=== PATIENT | male | born 2000 | race Caucasian/White ===

== ENCOUNTER 2018-06-10 06:13 | Inpatient (IN) ==
[2018-06-10] MEDS ORDERED: SODIUM CHLORIDE 0.9% 1,000 ML IV STA (06:49)
[2018-06-10 06:58] LABS: Basophils # 0.1 10*3/uL (0.0-0.2); Basophils % 0.5 % (0.0-0.8); Eosinophils % 0.2 % (0.00-10.9); Hematocrit 46.9 VOL% (42.0-52.0); Hemoglobin 16.2 GM/DL (14.0-18.0); Immature Granulocytes % 0.5 %; Immature Granulocytes Absolute 0.06 #; Lymphocytes # 1.2 10*3/uL (1.4-4.0); Lymphocytes % 9.2 % (21.2-54.2); Mean Corpuscular HGB Conc 34.5 GM/DL (32-36); Mean Corpuscular Hemoglobin 30 PG (27-34); Mean Corpuscular Volume 85.4 FL (87-102); Mean Platelet Volume 9.3 FL (9.6-12.0); Monocytes # 0.8 10*3/uL (0.11-0.8); Monocytes % 6.3 % (1.7-12.7); Neutrophils # 10.8 10*3/uL (1.4-7.4); Neutrophils % 83.3 % (38.7-73.9); Platelet Count 336 T/CUMM (130-400); Red Blood Count 5.49 MC/CUMM (3.8-5.5); Red Cell Distribution Width 11.8 % (9.3-17.3); White Blood Count 12.9 T/CUMM (4-12)
[2018-06-10 07:08] LABS: Alanine Aminotransferase 20 U/L (16-61); Albumin 4.9 G/DL (3.4-5.0); Alkaline Phosphatase 72 U/L (45-117); Aspartate Amino Transferase 17 U/L (0-37); Blood Urea Nitrogen 15 MG/DL (7-18); Calcium 9.4 MG/DL (8.5-10.1); Glucose 127 MG/DL (74-106); Potassium 3.3 MMOL/L (3.5-5.1); Sodium 136 MMOL/L (136-145); Total Protein 8.5 G/DL (6.4-8.3)
[2018-06-10 07:23] LABS: Acetaminophen < 2.0 UG/ML (10-30); Salicylate < 2.8 MG/DL (2.8-20)
[2018-06-10 09:43] LABS: Barbiturates Screen,Urine Negative (Negative); Benzodiazepines Screen,Urine Negative (Negative); Cannabinoid Screen,Urine Negative (Negative); Opiate Screen,Urine Negative (Negative); Phencyclidine Screen,Urine Negative (Negative)
[2018-06-10] MEDS ORDERED: ONDANSETRON 4 MG/2 ML VIAL IV PRN (15:06)
[2018-06-10] MEDS ORDERED: ACETAMINOPHEN 325 MG TABLET PO PRN (15:06)
[2018-06-10] MEDS ORDERED: PROMETHAZINE 25 MG/1 ML VIAL IM PRN (15:06)
[2018-06-10] MEDS ORDERED: POTASSIUM CHLORIDE 20 MEQ TABLET PO STA (15:08)
[2018-06-10 15:42] LABS: Thyroid Stimulating Hormone 6.01 uIU/ml (0.358-3.74)
[2018-06-10] MEDS ORDERED: INFLUENZA VIRUS VACCINE 0.5 ML SYRINGE IM ONE (16:25)
[2018-06-10] MEDS: SODIUM CHLORIDE 0.9% 1,000 ML IV SCH (16:32)
[2018-06-10] MEDS: PANTOPRAZOLE 40 MG TABLET PO SCH (16:33)
[2018-06-10] MEDS: ARIPiprazole 5 MG TABLET PO SCH (16:33)
[2018-06-10] MEDS ORDERED: MIRTAZAPINE 15 MG TABLET PO SCH (21:00)
[2018-06-11 04:26] LABS: Basophils % 0.5 % (0.0-0.8); Eosinophils # 0.1 10*3/uL (0.0-0.87); Eosinophils % 1.4 % (0.00-10.9); Hemoglobin 13.5 GM/DL (14.0-18.0); Immature Granulocytes % 0.5 %; Immature Granulocytes Absolute 0.04 #; Lymphocytes # 1.7 10*3/uL (1.4-4.0); Lymphocytes % 19.8 % (21.2-54.2); Mean Corpuscular HGB Conc 32.9 GM/DL (32-36); Mean Corpuscular Hemoglobin 29 PG (27-34); Mean Corpuscular Volume 88.7 FL (87-102); Mean Platelet Volume 9.3 FL (9.6-12.0); Monocytes # 0.7 10*3/uL (0.11-0.8); Monocytes % 8.4 % (1.7-12.7); Neutrophils # 5.8 10*3/uL (1.4-7.4); Neutrophils % 69.4 % (38.7-73.9); Platelet Count 262 T/CUMM (130-400); Red Blood Count 4.62 MC/CUMM (3.8-5.5); White Blood Count 8.4 T/CUMM (4-12)
[2018-06-11 04:56] LABS: Bilirubin,Total 0.9 MG/DL (0.2-1.0); Calcium 8.5 MG/DL (8.5-10.1)
[2018-06-11 04:57] LABS: Albumin 3.8 G/DL (3.4-5.0); Osmolality,Calculated 277.4 MOS/KG (273-304); Potassium 3.7 MMOL/L (3.5-5.1); Risk Ratio 2.81; Total Protein 6.6 G/DL (6.4-8.3); VLDL CHOLESTEROL 11.4 MG/DL
[2018-06-11] MEDS: PANTOPRAZOLE 40 MG TABLET PO SCH (09:53)
[2018-06-11] MEDS: ARIPiprazole 5 MG TABLET PO SCH (09:53)
[2018-06-11] MEDS: SODIUM CHLORIDE 0.9% 1,000 ML IV SCH ×4 (10:35→22:59)
[2018-06-11] MEDS: SERTRALINE 25 MG TABLET PO SCH (10:42)
[2018-06-12] MEDS ORDERED: ZALEPLON 5 MG CAPSULE PO ONE (01:08)
[2018-06-12] MEDS: SODIUM CHLORIDE 0.9% 1,000 ML IV SCH (07:04)
[2018-06-12] MEDS: SERTRALINE 25 MG TABLET PO SCH (10:38)
[2018-06-12] MEDS: ARIPiprazole 5 MG TABLET PO SCH (10:38)
[2018-06-12] MEDS: PANTOPRAZOLE 40 MG TABLET PO SCH (10:38)
[2018-06-12 13:15] VITALS: BP 112/67
== END 2018-06-12 16:40 | DRG 918 ==
LOC: N.ED 06:13 → N.EDINP 15:06 → SUATTDRO 15:06 → N.2E 15:58 → N.4E 18:58
PROVIDERS: ADMIT Phlebology; ATTEND Internal Medicine